=== PATIENT | female | born 1995 | race Caucasian/White ===

== ENCOUNTER 2018-09-30 13:18 | Inpatient (IN) | payer BC, MEDICAID ==
[2018-09-30 14:32] LABS: ABNORMAL IP MESSAGE 1; ADD MAN DIFF? NO; BASOPHILS % 0.3 % (0.0-2.0); EOSINOPHILS # 0.1 10^3/ul (0.0-0.5); EOSINOPHILS % 0.8 % (0.0-7.0); HEMATOCRIT 31.2 % (37.0-47.0); HEMOGLOBIN 10.1 g/dl (12.0-16.0); LYMPHOCYTES # 1.9 10^3/ul (0.8-2.9); LYMPHOCYTES % 19.6 % (15.0-51.0); MEAN CORPUSCULAR HEMOGLOBIN 25.6 pg (29.0-33.0); MEAN CORPUSCULAR HGB CONC 32.4 g/dl (32.0-37.0); MEAN CORPUSCULAR VOLUME 79.2 fl (82.0-101.0); MEAN PLATELET VOLUME 13.1 fl (7.4-10.4); MONOCYTE # 1.1 10^3/ul (0.3-0.9); MONOCYTES % 11.5 % (0.0-11.0); NEUTROPHIL # 6.4 10^3/ul (1.6-7.5); NEUTROPHILS % 67.3 % (39.0-77.0); PLATELET COUNT 182 10^3/UL (140-415); RED BLOOD COUNT 3.94 10^6/ul (4.20-5.40); RED CELL DISTRIBUTION WIDTH 13.2 % (11.5-14.5)
[2018-09-30 14:32] LABS: WHITE BLOOD COUNT 9.5 10^3/ul (4.8-10.8)
[2018-09-30 14:34] LABS: POSITIVE DIFF @See below
[2018-09-30 14:51] LABS: ALANINE AMINOTRANSFERASE 20 IU/L (13-69); ALBUMIN 3.6 g/dl (3.3-4.9); ALKALINE PHOSPHATASE 160 IU/L (42-121); ANION GAP 12 (5-13); ASPARTATE AMINO TRANSFERASE 25 IU/L (15-46); BILIRUBIN,INDIRECT 0.5 mg/dl (0-1.1); BILIRUBIN,TOTAL 0.5 mg/dl (0.2-1.3); BLOOD UREA NITROGEN 9 mg/dl (7-20); CALCIUM 9.5 mg/dl (8.4-10.2); CARBON DIOXIDE 19 mmol/L (21-31); CHLORIDE 104 mmol/L (97-110); CREATININE 0.76 mg/dl (0.44-1.00); Estimated GFR > 60 mL/min (>60); GLUCOSE 67 mg/dl (70-220); POTASSIUM 4.2 mmol/L (3.5-5.1); SODIUM 135 mmol/L (135-144); TOTAL PROTEIN 7.2 g/dl (6.1-8.1); URIC ACID 7.4 mg/dl (3.1-7.9)
[2018-09-30 14:55] LABS: INR 0.87; PARTIAL THROMBOPLASTIN TIME 26.1 Sec (23.0-35.0); PROTIME 11.9 Sec (11.9-14.9); PT RATIO 0.9
[2018-09-30 14:58] LABS: ADD UMIC YES; UR ASCORBIC ACID NEGATIVE (NEGATIVE); UR BILIRUBIN (Dip) NEGATIVE (NEGATIVE); UR BLOOD (Dip) NEGATIVE (NEGATIVE); UR CLARITY CLEAR (CLEAR); UR COLOR YELLOW (YELLOW); UR GLUCOSE (Dip) NEGATIVE (NEGATIVE); UR KETONES (Dip) NEGATIVE (NEGATIVE); UR LEUKOCYTE ESTERASE (Dip) TRACE Leu/ul (NEGATIVE); UR MUCUS FEW /HPF (NONE SEEN); UR NITRITE (Dip) NEGATIVE (NEGATIVE); UR RBC 1 /HPF (0-5); UR SPECIFIC GRAVITY (Dip) 1.021 (1.003-1.030); UR SQUAMOUS EPITHELIAL CELL FEW /HPF (FEW); UR TOTAL PROTEIN (Dip) NEGATIVE (NEGATIVE); UR UROBILINOGEN (Dip) NEGATIVE (NEGATIVE); UR WBC 4 /HPF (0-5)
[2018-09-30] MEDS: LACTATED RINGER'S 1,000 ML IV (23:50)
[2018-10-01] MEDS: LACTATED RINGER'S 1,000 ML IV ×3 (06:08→22:48)
[2018-10-01 13:41] LABS: COLLECTION PERIOD 24 hrs
[2018-10-01 14:14] LABS: VOLUME 2100 ml/24hrs; VOLUME 2100 mls
[2018-10-01 14:15] LABS: COLLECTION PERIOD 24 hrs; CREATININE,URINE RANDOM 76.61 mg/dl (20-320); SCRET 0.76 mg/dl (0.44-1.00)
[2018-10-01] MEDS ORDERED: ACETAMINOPHEN 325 MG TAB PO (15:30)
[2018-10-01] MEDS: AL HYDROX/MG HYDROX/SIMETH 30 ML CUP PO ×2 (17:23→23:33)
[2018-10-02] MEDS: LACTATED RINGER'S 1,000 ML IV ×4 (07:35→20:52)
[2018-10-02] MEDS ORDERED: LACTATED RINGER'S 1,000 ML IV (11:41)
[2018-10-02] MEDS ORDERED: OXYTOCIN 30 UNITS/LR 500 ML IV (12:00)
[2018-10-02] MEDS ORDERED: BUTORPHANOL 2 MG INJ IV (12:00)
[2018-10-02] MEDS ORDERED: CARBOPROST 250 MCG INJ IM (12:00)
[2018-10-02] MEDS ORDERED: IBUPROFEN 600 MG TAB PO (12:00)
[2018-10-02] MEDS ORDERED: LIDOCAINE 1% (MPF) 30 ML INJ INJ (12:00)
[2018-10-02] MEDS ORDERED: METHYLERGONOVINE 0.2 MG INJ IM (12:00)
[2018-10-02] MEDS ORDERED: MISOPROSTOL 200 MCG TAB PR (12:00)
[2018-10-02] MEDS: MISOPROSTOL 50 MCG CAPSULE PO ×3 (12:53→22:02)
[2018-10-02 14:37] LABS: ADD MAN DIFF? NO
[2018-10-02 14:40] LABS: WHITE BLOOD COUNT 8.5 10^3/ul (4.8-10.8)
[2018-10-02 14:40] LABS: BASOPHILS % 0.4 % (0.0-2.0); EOSINOPHILS # 0.1 10^3/ul (0.0-0.5); EOSINOPHILS % 0.9 % (0.0-7.0); HEMATOCRIT 31.1 % (37.0-47.0); HEMOGLOBIN 10.1 g/dl (12.0-16.0); LYMPHOCYTES # 1.8 10^3/ul (0.8-2.9); LYMPHOCYTES % 21.3 % (15.0-51.0); MEAN CORPUSCULAR HEMOGLOBIN 25.5 pg (29.0-33.0); MEAN CORPUSCULAR HGB CONC 32.5 g/dl (32.0-37.0); MEAN CORPUSCULAR VOLUME 78.5 fl (82.0-101.0); MEAN PLATELET VOLUME 12.7 fl (7.4-10.4); MONOCYTE # 0.9 10^3/ul (0.3-0.9); MONOCYTES % 10.1 % (0.0-11.0); NEUTROPHIL # 5.7 10^3/ul (1.6-7.5); NEUTROPHILS % 66.8 % (39.0-77.0); PLATELET COUNT 174 10^3/UL (140-415); RED BLOOD COUNT 3.96 10^6/ul (4.20-5.40); RED CELL DISTRIBUTION WIDTH 13.5 % (11.5-14.5)
[2018-10-02 14:51] LABS: INR 0.93; PROTIME 12.6 Sec (11.9-14.9)
[2018-10-02 14:52] LABS: PARTIAL THROMBOPLASTIN TIME 26.6 Sec (23.0-35.0)
[2018-10-02 15:25] LABS: HEPATITIS B SURFACE ANTIGEN NEGATIVE (NEGATIVE)
[2018-10-02 19:33] LABS: RAPID PLASMA REAGIN NONREACTIVE (NR)
[2018-10-03] MEDS: MISOPROSTOL 50 MCG CAPSULE PO (02:03)
[2018-10-03] MEDS ORDERED: KETOROLAC 30 MG INJ IV (03:00)
[2018-10-03] MEDS ORDERED: HYDROmorphONE 0.5 MG/0.5 ML SYG IV ×2 (03:00)
[2018-10-03] MEDS ORDERED: DIPHENHYDRAMINE 50 MG INJ IV (03:00)
[2018-10-03] MEDS ORDERED: NALOXONE (0.4 MG/ML) INJ IV (03:00)
[2018-10-03] MEDS ORDERED: ZOLPIDEM 5 MG TAB PO (03:00)
[2018-10-03] MEDS: LACTATED RINGER'S 1,000 ML IV ×3 (04:15→18:56)
[2018-10-03] MEDS: OXYTOCIN 30 UNITS/LR 500 ML IV (04:21)
[2018-10-03] MEDS: FENTAnyl 2MCG/ML-ROPIV 0.2% 100 ML BAG EPI ×3 (09:16→21:54)
[2018-10-03] MEDS: ONDANSETRON 4 MG INJ IV (09:30)
[2018-10-03] MEDS: MAGNESIUM SULFATE 4 GM/100 ML 100 ML IV (22:44)
[2018-10-03] MEDS: MAGNESIUM SULFATE 20 GM/500 ML 500 ML IV (23:34)
[2018-10-04] MEDS: FENTAnyl 2MCG/ML-ROPIV 0.2% 100 ML BAG EPI ×2 (02:55→07:45)
[2018-10-04] MEDS: LACTATED RINGER'S 1,000 ML IV (06:27)
[2018-10-04] MEDS ORDERED: OXYTOCIN 30 UNITS/LR 500 ML BAG IV (07:00)
[2018-10-04] MEDS ORDERED: LABETALOL HCL 20MG INJ (08:26)
[2018-10-04 08:28] LABS: MAGNESIUM 6.2 mg/dl (1.7-2.5)
[2018-10-04] MEDS: LABETALOL HCL 20MG INJ IV (08:30)
[2018-10-04] MEDS ORDERED: OXYTOCIN 10 UNIT INJ (10:16)
[2018-10-04] MEDS ORDERED: morphine SULFATE/PF (10 MG/10 ML) INJ (10:16)
[2018-10-04] MEDS: MAGNESIUM SULFATE 20 GM/500 ML 500 ML IV ×2 (11:52→18:50)
[2018-10-04] MEDS: OXYTOCIN 30 UNITS/LR 500 ML IV ×3 (11:53→18:48)
[2018-10-04] MEDS ORDERED: NALOXONE (0.4 MG/ML) INJ IV (12:00)
[2018-10-04] MEDS ORDERED: DIPHENHYDRAMINE 50 MG INJ IV (12:00)
[2018-10-04] MEDS ORDERED: morphine 2 MG INJ IV (12:00)
[2018-10-04] MEDS ORDERED: ONDANSETRON 4 MG INJ IV (12:00)
[2018-10-04] MEDS: LABETALOL 200 MG TAB PO ×2 (13:10→15:06)
[2018-10-04 14:55] LABS: MAGNESIUM 6.2 mg/dl (1.7-2.5)
[2018-10-04] MEDS: hydrALAzine 20 MG INJ IV (16:10)
[2018-10-04] MEDS ORDERED: OXYCODONE/ACETAMINOPHEN (5/325) TAB PO (18:30)
[2018-10-04] MEDS ORDERED: METHYLERGONOVINE 0.2 MG INJ IM (18:30)
[2018-10-04] MEDS ORDERED: OXYTOCIN 30 UNITS/LR 500 ML IV (18:30)
[2018-10-04] MEDS ORDERED: MISOPROSTOL 200 MCG TAB PR (18:30)
[2018-10-04] MEDS ORDERED: NACL 0.9% 3 ML SYG IV (18:30)
[2018-10-04] MEDS ORDERED: CARBOPROST 250 MCG INJ IM (18:30)
[2018-10-04] MEDS: CEFAZOLIN 1 GM/50 ML (PMX) 50 ML IVPB (18:47)
[2018-10-04 18:51] LABS: MAGNESIUM 6.6 mg/dl (1.7-2.5)
[2018-10-04] MEDS: SENNA/DOCUSATE NA (8.6MG/50MG) TAB PO (20:30)
[2018-10-04] MEDS ORDERED: LABETALOL 200 MG TAB PO (21:00)
[2018-10-04] MEDS: KETOROLAC 30 MG INJ IV (23:49)
[2018-10-05 01:22] LABS: MAGNESIUM 6.8 mg/dl (1.7-2.5)
[2018-10-05] MEDS: OXYTOCIN 30 UNITS/LR 500 ML IV (01:38)
[2018-10-05] MEDS: CEFAZOLIN 1 GM/50 ML (PMX) 50 ML IVPB ×2 (02:19→11:41)
[2018-10-05] MEDS: KETOROLAC 30 MG INJ IV ×2 (05:32→11:53)
[2018-10-05] MEDS: MAGNESIUM SULFATE 20 GM/500 ML 500 ML IV (05:39)
[2018-10-05 08:46] LABS: ADD MAN DIFF? NO
[2018-10-05 08:49] LABS: BASOPHIL # 0.1 10^3/ul (0.0-0.1); BASOPHILS % 0.4 % (0.0-2.0); EOSINOPHILS # 0.1 10^3/ul (0.0-0.5); EOSINOPHILS % 0.4 % (0.0-7.0); HEMATOCRIT 25.1 % (37.0-47.0); HEMOGLOBIN 8.2 g/dl (12.0-16.0); LYMPHOCYTES # 1.6 10^3/ul (0.8-2.9); LYMPHOCYTES % 11.4 % (15.0-51.0); MEAN CORPUSCULAR HEMOGLOBIN 25.4 pg (29.0-33.0); MEAN CORPUSCULAR HGB CONC 32.7 g/dl (32.0-37.0); MEAN CORPUSCULAR VOLUME 77.7 fl (82.0-101.0); MEAN PLATELET VOLUME 12.8 fl (7.4-10.4); MONOCYTE # 1.2 10^3/ul (0.3-0.9); MONOCYTES % 8.6 % (0.0-11.0); NEUTROPHIL # 11.2 10^3/ul (1.6-7.5); NEUTROPHILS % 78.6 % (39.0-77.0); PLATELET COUNT 161 10^3/UL (140-415); RED BLOOD COUNT 3.23 10^6/ul (4.20-5.40); RED CELL DISTRIBUTION WIDTH 13.6 % (11.5-14.5)
[2018-10-05 08:49] LABS: WHITE BLOOD COUNT 14.2 10^3/ul (4.8-10.8)
[2018-10-05] MEDS: SENNA/DOCUSATE NA (8.6MG/50MG) TAB PO ×2 (08:51→21:55)
[2018-10-05 09:41] LABS: MAGNESIUM 6.6 mg/dl (1.7-2.5)
[2018-10-05] MEDS: IOHEXOL 300MG/ML 150 ML BTL (10:45)
[2018-10-05] MEDS: SOD CHLORIDE 0.9% 100 ML (10:45)
[2018-10-05] MEDS: IBUPROFEN 600 MG TAB PO ×2 (12:00→17:32)
[2018-10-05] MEDS: LABETALOL 200 MG TAB PO ×2 (12:46→21:56)
[2018-10-06] MEDS: IBUPROFEN 600 MG TAB PO ×5 (00:08→23:35)
[2018-10-06] MEDS: SENNA/DOCUSATE NA (8.6MG/50MG) TAB PO ×2 (09:56→21:32)
[2018-10-06] MEDS: LABETALOL 200 MG TAB PO ×3 (11:14→23:34)
[2018-10-06] MEDS: LABETALOL HCL 20MG INJ IV ×2 (14:17→16:28)
[2018-10-06] MEDS: MAGNESIUM SULFATE 4 GM/100 ML 100 ML IVPB ×2 (16:47→21:48)
[2018-10-06] MEDS: MAGNESIUM SULFATE 20 GM/500 ML 500 ML IV ×2 (16:49→22:20)
[2018-10-06 17:04] LABS: ADD MAN DIFF? NO
[2018-10-06 17:05] LABS: WHITE BLOOD COUNT 13.8 10^3/ul (4.8-10.8)
[2018-10-06 17:05] LABS: ABNORMAL IP MESSAGE 1; BASOPHIL # 0.1 10^3/ul (0.0-0.1); BASOPHILS % 0.4 % (0.0-2.0); EOSINOPHILS # 0.2 10^3/ul (0.0-0.5); EOSINOPHILS % 1.5 % (0.0-7.0); HEMATOCRIT 22.8 % (37.0-47.0); HEMOGLOBIN 7.4 g/dl (12.0-16.0); LYMPHOCYTES # 1.8 10^3/ul (0.8-2.9); MEAN CORPUSCULAR HEMOGLOBIN 25.7 pg (29.0-33.0); MEAN CORPUSCULAR HGB CONC 32.5 g/dl (32.0-37.0); MEAN CORPUSCULAR VOLUME 79.2 fl (82.0-101.0); MEAN PLATELET VOLUME 12.5 fl (7.4-10.4); MONOCYTE # 1.5 10^3/ul (0.3-0.9); MONOCYTES % 10.9 % (0.0-11.0); NEUTROPHIL # 10.1 10^3/ul (1.6-7.5); NEUTROPHILS % 73.3 % (39.0-77.0); PLATELET COUNT 172 10^3/UL (140-415); RED BLOOD COUNT 2.88 10^6/ul (4.20-5.40)
[2018-10-06 17:12] LABS: POSITIVE DIFF @See below
[2018-10-06 17:44] LABS: ALANINE AMINOTRANSFERASE 55 IU/L (13-69); ALKALINE PHOSPHATASE 108 IU/L (42-121); ANION GAP 7 (5-13); ASPARTATE AMINO TRANSFERASE 76 IU/L (15-46); BILIRUBIN,INDIRECT 0.3 mg/dl (0-1.1); BILIRUBIN,TOTAL 0.3 mg/dl (0.2-1.3); BLOOD UREA NITROGEN 11 mg/dl (7-20); CALCIUM 8.8 mg/dl (8.4-10.2); CARBON DIOXIDE 22 mmol/L (21-31); CHLORIDE 109 mmol/L (97-110); CREATININE 0.95 mg/dl (0.44-1.00); Estimated GFR > 60 mL/min (>60); GLUCOSE 75 mg/dl (70-220); POTASSIUM 3.8 mmol/L (3.5-5.1); SODIUM 138 mmol/L (135-144)
[2018-10-06] MEDS: DIPHENHYDRAMINE 50 MG CAP PO (18:31)
[2018-10-06] MEDS: NIFEdipine (XL) 30 MG TAB PO (18:33)
[2018-10-06] MEDS: hydrALAzine 20 MG INJ IV (21:32)
[2018-10-06] MEDS ORDERED: CA GLUCONATE (GM) 10% 10ML INJ IV (22:00)
[2018-10-06] MEDS ORDERED: NACL 0.9% 3 ML SYG IV (22:00)
[2018-10-06] MEDS ORDERED: LORAZEPAM 1 MG TAB (22:53)
[2018-10-06] MEDS: LORAZEPAM 0.5 MG TAB PO (23:56)
[2018-10-07] MEDS: LACTATED RINGER'S 1,000 ML IV ×2 (00:06→10:09)
[2018-10-07] MEDS: IBUPROFEN 600 MG TAB PO ×3 (05:39→18:00)
[2018-10-07] MEDS: MAGNESIUM SULFATE 20 GM/500 ML 500 ML IV (06:57)
[2018-10-07] MEDS: LABETALOL 200 MG TAB PO ×3 (08:05→22:52)
[2018-10-07 09:03] LABS: MAGNESIUM 5.8 mg/dl (1.7-2.5)
[2018-10-07] MEDS: NIFEdipine (XL) 30 MG TAB PO (09:26)
[2018-10-07] MEDS: SENNA/DOCUSATE NA (8.6MG/50MG) TAB PO ×2 (09:26→21:11)
[2018-10-07] MEDS: DIPHTH/TET/ACEL PERTUSS (ADULT) 0.5 ML VIAL IM* (11:06)
[2018-10-07] MEDS: POLYSACCHARIDE IRON COMPLEX CAP PO ×2 (14:23→21:11)
[2018-10-07] MEDS: DOCUSATE SODIUM 100 MG CAP PO ×2 (14:23→21:11)
[2018-10-08] MEDS: IBUPROFEN 600 MG TAB PO ×3 (00:27→12:24)
[2018-10-08] MEDS: LABETALOL 200 MG TAB PO ×2 (06:29→15:01)
[2018-10-08] MEDS: LABETALOL HCL 20MG INJ IV (06:43)
[2018-10-08] MEDS: LACTATED RINGER'S 1,000 ML IV (07:00)
[2018-10-08] MEDS: POLYSACCHARIDE IRON COMPLEX CAP PO (08:36)
[2018-10-08] MEDS: NIFEdipine (XL) 60 MG TAB PO (08:36)
[2018-10-08] MEDS: SENNA/DOCUSATE NA (8.6MG/50MG) TAB PO (09:00)
[2018-10-08] MEDS: DOCUSATE SODIUM 100 MG CAP PO (09:00)
[2018-10-08] MEDS: LORAZEPAM 1 MG TAB PO (11:00)
== END 2018-10-08 15:45 | disposition home or self-care (01) | DRG 788 ==
LOC: OBT 13:18 → L-D 10-02 10:26 → OBT 13:36 → PP1 10-04 17:29 → L-D 13:33 → PP1 19:39
PROC: 10D00Z1 Extraction of Products of Conception, Low, Open Approach (ICD-10-PCS; principal; 2018-10-04)
PROC: 3E033VJ Introduction of Other Hormone into Peripheral Vein, Percutaneous Approach (ICD-10-PCS; 2018-10-04)
DX: O14.14 Severe pre-eclampsia complicating childbirth (principal); O76 Abnormality in fetal heart rate and rhythm complicating labor and delivery; Z3A.37 37 weeks gestation of pregnancy; Z37.0 Single live birth
CPT/HCPCS: 62322; 76815; 76816; 76818; 80053; 81001; 82575; 83735; 84156; 84560; 85025; 85610; 85730; 86592; 86850; 86900; 86901; 87340; 90715; 99464